=== PATIENT | female | born 1950 | race Caucasian/White ===

== ENCOUNTER → 2017-03-10 | Emergency (ER) | payer OTHER ==
[2017-03-10 09:38] VITALS: BP 135/65; PULSE 78; RESP 18; TEMP 98; O2SAT 97
--- NOTE | 2017-03-10 10:04 | UCPHY ---
H & P Time Seen by Provider: 03/10/17 09:29 Patient Type: New HPI/ROS: CHIEF COMPLAINT: Wound check History by patient HISTORY OF PRESENT ILLNESS: 66-year-old woman presents for check of an abscess on her back that was lanced and packed at [facility] 3 days ago. Patient states that she has had a lesion on her back for several months which she thought was a fatty tumor, but then it developed redness and were swelling so she was seen and diagnosed with an abscess. Her to a [place] around the area of redness. She says the redness has not spread. She has had no fever, chills, nausea or vomiting and has otherwise been well. She was not started on antibiotics. She states she has an appointment pending with the primary care physician on March 22 but she needed to have the wound rechecked so she came here. REVIEW OF SYSTEMS: As in HPI, and all other systems reviewed and are negative Smoking Status: Never smoked Physical Exam: General Appearance: Alert and no distress. Eyes: Pupils equal and round no injection. Musculoskeletal: Neck is supple and nontender. Back: Positive 1 cm open, abscess with scant purulent drainage and minimal surrounding erythema within the borders of a line drawn and black marker. Skin: As above. Constitutional: Initial Vital Signs Temperature (C) 36.6 C 03/10/17 09:30 Heart Rate 78 03/10/17 09:30 Respiratory Rate 18 03/10/17 09:30 Blood Pressure 135/65 H 03/10/17 09:30 O2 Sat (%) 97 03/10/17 09:30 O2 Delivery Mode Room Air Allergies/Adverse Reactions: codeine Allergy (Verified 03/10/17 09:30) Home Medications: Medication Instructions Recorded NK [No Known Home Meds] 03/10/17 MDM/Departure - MDM Procedures: Patient's wound was repacked by me. ED Course/Re-evaluation: Wound was repacked by me. There is no evidence of spreading infection and the wound appears to be healing well. I am recommending the patient's continue packing every 48 hours however he is unable do this the patient is welcome to come back. We discussed signs and symptoms of worsening infection and return precautions. We discussed home care and packing. Ultimately patient will follow up with her new primary care physician at the beginning of March. We also discussed if the wound does not heal properly that it will need biopsy and further evaluation given that it has been on her back so long - Depart Disposition: Home, Routine, Self-Care Clinical Impression: Abscess Condition: Good Instructions: Abscess (ED) Additional Instructions: You were seen by Dr. Rosy Asher today. Return for any worsening or new concerns. Have your has been repacked the wound in 2 days. If he is unable to do this or if there is any worsening or new problems please return here. Referrals: VIVI SINGER [Other] - As per Instructions - PQRS PQRS Measurement: NA
== END | disposition home or self-care (01) ==
LOC: CED 09:20
PROC: 2W45X5Z Packing of Back using Packing Material (ICD-10-PCS; principal; 2017-03-10)
DX: Z48.01 Encounter for change or removal of surgical wound dressing (principal); L03.312 Cellulitis of back [any part except buttock and flank]
CPT/HCPCS: 99202-PO; G0463-PO